=== PATIENT | male | born 1965 | race Hispanic/Latino ===

== ENCOUNTER 2024-10-15 10:39 | Emergency (ER) | payer OTHER ==
[~2024-10-15] VITALS: Ht 180.3 cm; Wt 161.9 kg
[~2024-10-15 10:39] MED LIST: TIOT4MIS3 IH
[2024-10-15 10:40] VITALS: TEMP 99.2
[2024-10-15 11:24] LABS: BASOPHILS # (AUTO) 0.05 K/uL (0.00-0.20); BASOPHILS % (AUTO) 0.5 % (0.0-5.0); EOSINOPHILS # (AUTO) 0.33 K/uL (0.00-0.70); HEMATOCRIT 46.6 % (42-54); IMMATURE GRANULOCYTE ABSOLUTE 0.03 K/uL (0-1); LYMPHOCYTES # (AUTO) 2.3 K/uL (1.0-4.8); LYMPHOCYTES % (AUTO) 20.7 % (21.0-51.0); MEAN CORPUSCULAR HGB CONC 31.3 g/dL (32.0-36.0); MEAN CORPUSCULAR VOLUME 86.3 fL (79-99); MONOCYTES # (AUTO) 0.7 K/uL (0.1-1.0); MONOCYTES % (AUTO) 5.9 % (3.0-13.0); NEUTROPHILS # (AUTO) 7.6 K/uL (1.8-7.7); NEUTROPHILS % (AUTO) 69.6 % (40.0-77.0); PLATELET COUNT (AUTO) 268 K/uL (130-400); RED CELL DISTRIBUTION WIDTH 13.2 % (11.0-15.5)
[2024-10-15 11:41] LABS: CREATININE 0.9 mg/dL (0.5-1.3); POTASSIUM 4.3 mmol/L (3.5-5.1)
[2024-10-15 11:45] LABS: ALBUMIN 3.7 g/dL (3.5-5.0); BILIRUBIN,TOTAL 0.5 mg/dL (0.2-1.0); TOTAL PROTEIN, SERUM 7.4 g/dL (6.0-8.3)
--- NOTE | 2024-10-15 12:06 | NUR ---
PATIENT IN ER LOBBY, PENDING IV SITE & CONSENT FOR CT EXAM.
--- NOTE | 2024-10-15 12:39 | NUR ---
PT JUST NOW PLACED IN MY ED BED 17
--- NOTE | 2024-10-15 13:12 | NUR ---
UA COLLECTED AND SENT TO LAB. LABELED AND NUMBERED
[2024-10-15] MEDS ORDERED: IOHEXOL-350 75 ML VIAL IV ONE (13:26)
--- NOTE | 2024-10-15 13:29 | NUR ---
PT JUST NOW TAKEN TO CT SCAN
--- NOTE | 2024-10-15 13:44 | NUR ---
JUST RETURNED FROM CT
[2024-10-15 13:51] LABS: APPEARANCE,URINE CLEAR (CLEAR); BILIRUBIN,URINE NEGATIVE (NEGATIVE); COLOR,URINE LIGHT-YELLOW (YELLOW); GLUCOSE, URINE (UA) NEGATIVE (NEGATIVE); KETONES,URINE NEGATIVE (NEGATIVE); LEUKOCYTE ESTERASE ,URINE NEGATIVE Leu/uL (NEGATIVE); NITRATE,URINE NEGATIVE (NEGATIVE); OCCULT BLOOD,URINE NEGATIVE (NEGATIVE); PROTEIN,URINE NEGATIVE (NEGATIVE); UROBILINOGEN,URINE 0.2 mg/dL (0.2-1.0)
--- NOTE | 2024-10-15 13:52 | HMCIMG ---
CT ABDOMEN/PELVIS W/CONTRAST HISTORY: RUQ abdominal pain TECHNIQUE: CT ABDOMEN/PELVIS W/CONTRAST 75 cc Omnipaque contrast was used. Oral contrast was not given. Coronal and sagittal reformats were obtained. CT was performed with one or more of the following dose reduction techniques: Automated exposure control, adjustment of the mA and/or kV according to the patient's size, or use of the iterative reconstruction technique. Comparison: 08/01/2022 FINDINGS: No pulmonary consolidation or pleural effusion is seen. There is hepatic steatosis. No calcified gallstone is seen. Small calcified granuloma seen in the spleen. No acute findings in the pancreas and adrenal glands. Indeterminate left adrenal gland nodule measuring 2.4 cm. No hydronephrosis. The urinary bladder is partially distended. Reproductive organs are grossly within normal limits for patient's age. Prominent fecal material is seen in the colon suggestive of constipation. No bowel obstruction is seen. Appendix is normal in caliber. Degenerative changes of the spine. Visualized aorta is normal in caliber. Fat-containing umbilical hernia is seen with the hernia sac measuring 5 cm. IMPRESSION: 1. Prominent fecal material is seen in the colon suggestive of constipation. No bowel obstruction is seen 2. Left adrenal gland nodule measuring 2.4 cm, incompletely characterized. Correlate clinically..
[2024-10-15 14:01] LABS: MUCUS,URINE RARE LPF (None Seen); RBC,URINE 0-1 /HPF (0-1); SQUAMOUS EPITHELIAL CELL,UR RARE /HPF (0-2); WBC,URINE 0-1 /HPF (0-1)
[2024-10-15] MEDS: MAG/ALUM/SIMETH 30 ML UDCUP PO ONE (14:32)
[2024-10-15] MEDS: PANTOPrazole 40 MG TAB DR PO ONE (14:33)
[2024-10-15] MEDS: LIDOCAINE HCL 2% VISCOUS 15 ML UDCUP PO ONE (14:33)
[2024-10-15] MEDS ORDERED: OMEP10CA5 PO (14:44)
[2024-10-15] MEDS ORDERED: POLY17PO4 PO (14:44)
--- NOTE | 2024-10-15 14:44 | ERN ---
General Chief Complaint: Abdominal Pain Stated Complaint: RUQ ABDOMINAL PAIN. NAUSEA. Time Seen by MD: 10:41 Source: patient History of Present Illness Allergies: Coded Allergies: aspirin (Unverified Allergy, Severe, ANAPHYLAXIS, THROAT SWELLING, 07/02/16) morphine (Unverified Allergy, Severe, CONVULSIONS, 07/02/16) Home Meds Active Scripts Tiotropium Br/Olodaterol HCl (Stiolto Respimat Inhal Nancy) 4 Gm Mist.inhal, 4 GM IH 2 puffs daily for 30 Days, #1 INHALER Prov:ROSARIO JUAREZ AGACNP 08/08/22 Past Medical History Past Medical History: COPD, Diabetes-Type II Medical History Other: EMPHYSEMA, SLEEP APNEA, CHRONIC HOME O2 USE 3LNC Past Surgical History: Tonsillectomy, Other Surgical History Other: LT ELBOW Family History Family History: Negative Social History Social History: Drugs, Lives with family Results Laboratory and Microbiology Lab and Micro Result Laboratory Tests Test 10/15/24 11:09 10/15/24 13:10 White Blood Count 11.0 K/uL (4.8-10.8) H Red Blood Count 5.40 MIL/uL (4.50-6.20) Hemoglobin 14.6 g/dL (14.0-18.0) Hematocrit 46.6 % (42-54) Mean Corpuscular Volume 86.3 fL (79-99) Mean Corpuscular Hemoglobin 27.0 pg (27.0-33.0) Mean Corpuscular Hemoglobin Concent 31.3 g/dL (32.0-36.0) L Red Cell Distribution Width 13.2 % (11.0-15.5) Platelet Count 268 K/uL (130-400) Mean Platelet Volume 10.9 fL (7.5-10.5) H Immature Granulocyte % (Auto) 0.3 % (0-1) Neutrophils (%) (Auto) 69.6 % (40.0-77.0) Lymphocytes (%) (Auto) 20.7 % (21.0-51.0) L Monocytes (%) (Auto) 5.9 % (3.0-13.0) Eosinophils (%) (Auto) 3.0 % (0.0-8.0) Basophils (%) (Auto) 0.5 % (0.0-5.0) Neutrophils # (Auto) 7.6 K/uL (1.8-7.7) Lymphocytes # (Auto) 2.3 K/uL (1.0-4.8) Monocytes # (Auto) 0.7 K/uL (0.1-1.0) Eosinophils # (Auto) 0.33 K/uL (0.00-0.70) Basophils # (Auto) 0.05 K/uL (0.00-0.20) Absolute Immature Granulocyte (auto 0.03 K/uL (0-1) Nucleated Red Blood Cells 0.0 % (0.0-0.19) Sodium Level 142 mmol/L (136-145) Potassium Level 4.3 mmol/L (3.5-5.1) Chloride Level 106 mmol/L (101-111) Carbon Dioxide Level 29 mmol/L (21-32) Blood Urea Nitrogen 15 mg/dL (7-18) Creatinine 0.9 mg/dL (0.5-1.3) Glomerular Filtration Rate Calc 99 mL/min (>90) Random Glucose 143 mg/dL (70-105) H Total Calcium 8.9 mg/dL (8.5-10.1) Total Bilirubin 0.5 mg/dL (0.2-1.0) Aspartate Amino Transf (AST/SGOT) 20 U/L (10-37) Alanine Aminotransferase (ALT/SGPT) 30 U/L (12-78) Alkaline Phosphatase 114 U/L (50-136) Total Protein 7.4 g/dL (6.0-8.3) Albumin 3.7 g/dL (3.5-5.0) Lipase 46 U/L (16-77) Urine Color LIGHT-YELLOW (YELLOW) Urine Appearance CLEAR (CLEAR) Urine pH 5.0 (5.0-8.0) Urine Specific [place] 1.026 (1.001-1.031) Urine Protein NEGATIVE mg/dL (NEGATIVE) Urine Glucose (UA) NEGATIVE mg/dL (NEGATIVE) Urine Ketones NEGATIVE mg/dL (NEGATIVE) Urine Occult Blood NEGATIVE (NEGATIVE) Urine Nitrate NEGATIVE (NEGATIVE) Urine Bilirubin NEGATIVE mg/dL (NEGATIVE) Urine Urobilinogen 0.2 mg/dL (0.2-1.0) Urine Leukocyte Esterase NEGATIVE [place]/uL Urine RBC 0-1 /HPF (0-1) Urine WBC 0-1 /HPF (0-1) Urine Squamous Epithelial Cells RARE /HPF (0-2) Urine Bacteria None /HPF (None Seen) ED Course Orders Procedure Category Date Status Time Cbc With Differential LAB 10/15/24 Complete 10:56 Comprehensive LAB 10/15/24 Complete Metabolic Panel 10:56 Urinalysis LAB 10/15/24 Complete W/Microscopic 10:56 Lipase LAB 10/15/24 Complete 10:56 Ct Abdomen/Pelvis CT 10/15/24 Resulted W/Contrast 11:57 Iv Insertion CPOE 10/15/24 Transmitted 12:34 Iohexol (Omnipaque) PHA 10/15/24 Complete 13:26 Mag/Alum/Simeth 30ml PHA 10/15/24 Complete (Maalox Plus 30ml) 14:30 Lidocaine Hcl 2% PHA 10/15/24 Complete Viscous (Lidocaine Hcl 14:30 Pantoprazole 40mg Tab PHA 10/15/24 Complete (Protonix 40mg Tab 14:30 Current Medications Medications (Trade) Dose Ordered Sig/Abigail Route PRN Reason Start Time Stop Time Status Last Admin Dose Admin Al Hydroxide/Mg Hydroxide (MAALox PLUS 30ML) 30 ml ONCE ONCE PO 10/15/24 14:30 10/15/24 14:31 DC Iohexol (Omnipaque) 75 ml STK-MED ONCE IV 10/15/24 13:26 10/15/24 13:29 DC Lidocaine HCl (Lidocaine HCl 2% Viscous) 10 ml ONCE ONCE PO 10/15/24 14:30 10/15/24 14:31 DC Pantoprazole Sodium (PROTonix 40MG TAB) 40 mg ONCE ONCE PO 10/15/24 14:30 10/15/24 14:31 DC Vital Signs Date Time Temp Pulse Resp B/P (MAP) Pulse Ox O2 Delivery O2 Flow Rate FiO2 10/15/24 10:40 99.1 100 20 136/81 97 Nasal Cannula 3.0 DX & DISP Disposition: Discharge Departure Impression: Primary Impression: Constipation Additional Impression: Gastritis Condition: Stable Scripts Omeprazole (Omeprazole) 10 Mg Capsule.dr 10 MG PO DAILY for 7 Days, #7 CAP Prov: DACIA HAMILTON 10/15/24 Polyethylene Glycol 3350 (Miralax) 17 Gram Powd.pack 17 GM PO DAILY for constipation for 7 Days, #7 PACKET 0 Refills Prov: DACIA HAMILTON 10/15/24 Additional Instructions: Discharge home. Rest. Follow up with primary care DrJose in 24 hours. Return to the ER for any acute changes or worsening symptoms. If any medications were prescribed take as directed. Okay to continue home medications unless otherwise discussed during your visit in the emergency room today. Patient was also advised to follow-up with primary care physician in 1 to 2 days for continued monitoring. Referrals: CARRI BAKER MD (PCP) I participated in the following activities of this patient's care: For this patient encounter, I reviewed the PA or [employer] documentation, treatment plan, and medical decision making. I did not have [id number] time with this patient. I will sign as the reviewing DrJose And agree with the treatment plan and disposition. DACIA HAMILTON Oct 15, 2024 14:44
[2024-10-15 15:50] VITALS: BP 115/74; PULSE 98; RESP 19; O2SAT 96
== END 2024-10-15 15:50 | disposition home or self-care (01) ==
LOC: EDH 10:39
DX: K59.00 Constipation, unspecified (principal); K29.70 Gastritis, unspecified, without bleeding; E11.9 Type 2 diabetes mellitus without complications; Z88.5 Allergy status to narcotic agent; Z88.6 Allergy status to analgesic agent; Z90.89 Acquired absence of other organs; Z99.81 Dependence on supplemental oxygen
CPT/HCPCS: 99285; 74177; 80053; 83690; 85025; 81001; 36415; Q9967

== ENCOUNTER → 2025-04-03 | Outpatient (CLI) | payer OTHER ==
[~2025-04-03] MED LIST changes: +GADOTERATE MEGLUMINE 10 MMOL/20 ML VIAL IV ONE; +OMEP10CA5 PO; +POLY17PO4 PO
--- NOTE | 2025-04-03 14:56 | HMCIMG ---
MR ABDOMEN W/WO CON REASON: D35.02 Benign neoplasm of left adrenal gland COMPARISON: CT abdomen 08/15/2024, CT chest including the adrenal gland 08/01/2022. TECHNIQUE: Routine imaging protocol was performed in the axial and coronal plane with T1, proton density, T2 and gradient recalled sequences. Images are also obtained pre and postgadolinium contrast infusion, 20 cc Clariscan IV. FINDINGS: There is a well-circumscribed 2.5 cm nodule left adrenal gland. This demonstrates decreased signal intensity on fat-suppressed images consistent with some fatty content. There is mild contrast enhancement. These findings appear consistent with adrenal adenoma. Also the lesion has decreased slightly in size since prior study 08/01/2022, consistent with a stable lesion. Right adrenal gland appears normal. There are no focal liver lesions. Spleen appears unremarkable as does the pancreas. There are a few very small stones in an otherwise normal-appearing gallbladder. There is no wall thickening or edema. Common duct appears normal and tapers normally toward the head of the pancreas. IMPRESSION: 1. 2.5 cm nodule left adrenal gland with imaging characteristics typical of an adenoma. 2. Probable several very small stones in an otherwise normal-appearing gallbladder.
== END | disposition home or self-care (01) ==
LOC: CANSCHCLI → RAH 08:47
PROVIDERS: ATTEND Internal Medicine
DX: D35.02 Benign neoplasm of left adrenal gland (principal); E27.8 Other specified disorders of adrenal gland
CPT/HCPCS: 74183; A9575

== ENCOUNTER 2025-07-18 07:17 | Day surgery (SDC) | payer OTHER ==
[~2025-07-18] VITALS: Ht 180.3 cm; Wt 149.7 kg
[2025-07-18] VITALS (11 sets, daily range): BP systolic 90–148; BP diastolic 43–77; PULSE 66–78; RESP 14–18; TEMP 97.3–97.8
[~2025-07-18 07:17] MED LIST changes: -GADOTERATE MEGLUMINE 10 MMOL/20 ML VIAL IV ONE; +INSU300I SQ; +TIRZ10PE SQ
[2025-07-18] MEDS ORDERED: ROSUVASTATIN PO (07:46)
[2025-07-18] MEDS ORDERED: LEVA15HF6 IH (07:46)
[2025-07-18] MEDS ORDERED: BUDE10.7 IH (07:46)
[2025-07-18] MEDS ORDERED: OLMESARTAN PO (07:46)
[2025-07-18] MEDS ORDERED: LEVA15HF3 IH (07:46)
[2025-07-18] MEDS: 0.9%NACL 1000ML 1,000 ML IV ONE (07:47)
--- NOTE | 2025-07-18 10:09 | NUR ---
Full and complete discharge instruction regarding Gastro procedure to Patient and Family. All questions answered. PIV removed with catheter tip intact. Tolerated fluids and voided in bathroom. W/C to POV with Family.
== END 2025-07-18 10:11 | disposition home or self-care (01) ==
LOC: DAH 07:17 → ENDO 07:17
PROVIDERS: ATTEND Internal Medicine Gastroenterology
DX: K92.1 Melena (principal); D12.3 Benign neoplasm of transverse colon; D12.8 Benign neoplasm of rectum; K29.70 Gastritis, unspecified, without bleeding; B96.81 Helicobacter pylori [H. pylori] as the cause of diseases classified elsewhere; K22.89 Other specified disease of esophagus; K57.30 Diverticulosis of large intestine without perforation or abscess without bleeding; K64.1 Second degree hemorrhoids; F32.A Depression, unspecified; F20.9 Schizophrenia, unspecified; G47.00 Insomnia, unspecified; E11.9 Type 2 diabetes mellitus without complications; G47.33 Obstructive sleep apnea (adult) (pediatric); E78.5 Hyperlipidemia, unspecified; J43.9 Emphysema, unspecified; Z90.89 Acquired absence of other organs; Z98.890 Other specified postprocedural states; Z88.5 Allergy status to narcotic agent; Z88.6 Allergy status to analgesic agent; Z99.81 Dependence on supplemental oxygen; Z79.899 Other long term (current) drug therapy
CPT/HCPCS: 45385; 43239; 82948 ×2; J7030; J2704; A4620; A4215; J3490